=== PATIENT | female | born 1995 | race Caucasian/White ===

== ENCOUNTER 2016-11-09 21:41 | Emergency (ER) | payer BC ==
[~2016-11-09] VITALS: Ht 152.4 cm; Wt 53.9 kg
[2016-11-09 21:48] VITALS: BP 123/85; PULSE 79; TEMP 36.6; O2SAT 95; Ht 152.4 cm; Wt 53.9 kg
[2016-11-09] MEDS ORDERED: PROPARACAINE HCL 0.5% OP SOLN 15 ML BTL ONE (22:00)
[2016-11-09] MEDS ORDERED: OXYC1TAB3 PO (22:16)
[2016-11-09] MEDS ORDERED: ERYTHROMYCIN OP OINT 5 MG/GM 3.5 GM TUBE OP ONE (22:30)
[2016-11-09] MEDS ORDERED: ARTIFICIAL TEARS OP OINT 3.5 GM TUBE OP ONE (22:30)
[2016-11-09] MEDS ORDERED: OXYCODONE IR HOME PACK PO ONE (22:30)
--- NOTE | 2016-11-10 00:53 | EMERGENCY ROOM VISIT NOTE ---
History First contact with patient: 21:51 Chief Complaint: EYE PAIN Stated Complaint: SOMETHING STUCK IN LEFT EYE History of Present Illness The patient is a 21 year old female who presents to the Emergency Room with complaints of a sensation like something stuck in her left eye. The patient reports that she did not have any discomfort last night or this morning upon awakening. The patient does wear contact lenses, and does not recall taking them out last night. She reports that when she tried to insert her contact lens this morning, she noticed significant discomfort. She was able to insert the lens, but has had worsening discomfort throughout the day. She finally remove the contact lens this afternoon, and reports that the foreign body sensation persists. She also reports significant photophobia and blurred vision. She reports that the contact lenses are approximately 2 months old. She will wear them 14-16 hours daily. She denies any prior history of eye infections from contact lens use. She denies any other recent upper respiratory infections, and has had no purulent drainage from the eye. She rates her discomfort a 9 out of 10. Review of Systems 10 system review was performed and was negative except for pertinent positives and negatives as indicated in history of present illness Past Medical/Surgical History Medical Problems: (1) No significant past medical history Surgical Problems: (1) History of hand surgery (2) Surgical birthmark removal Family History FH: cancer FH: heart disease FH: hypertension Social History Smoking Status: Never Smoker Alcohol Use: occasionally Marital Status: single Housing Status: lives with roommate Occupation Status: [employer] student Current/Historical Medications Scheduled PRN Oxycodone Ir (Roxicodone Ir), 1 TAB PO Q4H PRN for Pain Physical Exam Vital Signs Date Time Temp Pulse Resp B/P (MAP) Pulse Ox O2 Delivery O2 Flow Rate FiO2 11/09/16 21:48 36.6 79 18 123/85 95 Room Air Right Eye Acuity: 100/20 Left Eye Acuity: 70/20 Pain Rating (0-10): 0 Physical Exam CONSTITUTIONAL: Healthy and well nourished. Alert and oriented X 3 with positive affect. Patient appears in mild to moderate discomfort from pain. HEENT: Normocephalic, atraumatic. Pupils equal, round and reactive. The patient has minimal left conjunctival injection. She has tearing from the eye without mucopurulent drainage. The patient is photophobic. No periorbital edema or erythema. Ears and nares are otherwise clear. NECK: Full active range of motion without discomfort. RESPIRATORY: Clear to auscultation bilaterally with no wheezing, crackles, rhonchi or stridor. CARDIOVASCULAR: Regular rate and rhythm with no murmurs, rubs or gallops. INTEGUMENTARY: No rash or other significant dermatologic conditions noted. NEUROLOGIC: No focal neurologic deficits noted. Medical Decision & Procedures Medications Administered Medications (Trade) Dose Ordered Sig/Jonathan Route Start Time Stop Time Status Last Admin Dose Admin Erythromycin (Erythromycin Oph Oint) 1 appln NOW ONCE OP 11/09/16 22:30 11/09/16 22:31 DC 11/09/16 22:39 1 APPLN Artificial Tears (Lacri-Lube Oph Oint) 1 appln NOW ONCE OP 11/09/16 22:30 11/09/16 22:31 DC 11/09/16 22:39 1 APPLN Oxycodone HCl (Roxicodone Immediate Rel 5MG Home Pack) 1 homepack UD ONCE PO 11/09/16 22:30 11/09/16 22:31 DC 11/09/16 22:39 1 HOMEPACK Procedure Slit lamp and fluorescein exam were performed. 2 drops of Alcaine were instilled into the left eye with complete resolution of pain. Centimeters exam did not show any mucopurulent drainage. There was no foreign debris noted in the lower conjunctival sac or under the upper eyelid with eversion. Negative hyphema, negative cell and flare. Fluorescein exam shows increased uptake of the cornea, consistent with contact overwear. No significant abrasions noted. ED Course Patient history and physical exam were performed. Nurse's notes were reviewed. Vital signs were reviewed and were normal. Visual acuity was also reviewed. The patient did not have her glasses with her and has poor vision without contact lenses. The patient had complete resolution with application of Alcaine eyedrops. Slit lamp and fluorescein exam did not show any evidence for corneal infection or abrasion. She does have significant fluorescein uptake, consistent with contact overwear use. The patient was instructed to refrain from contact lens use over the next 2 weeks. She was dispensed erythromycin ophthalmic ointment and Lacri-Lube, with instructions for use. She was encouraged in a mentally apply a cool compress to the eye. She was also provided a home pack and prescription for OxyIR as needed for pain. She was also encouraged to alternate ibuprofen and Tylenol for baseline pain relief. She was provided contact information for ophthalmology should her symptoms not improve within the next 48 hours. She was instructed to return to the emergency department for any significantly worsening symptoms. The patient was happy with plan of care, voice understanding of all discharge instructions, and denied any pain at the conclusion of my exam. Medical Decision [place] Drug Monitoring Program Search Results: patient reviewed within database, no issues identified Medication Reconcilliation Current Medication List: was personally reviewed by me Blood Pressure Screening Patient's blood pressure: Normal blood pressure Impression Primary Impression: Contact lens overwear of left eye Departure Information Dispostion Home / Self-Care Condition FAIR Prescriptions Oxycodone Ir (Roxicodone Ir) 5 Mg Tab 1 TAB PO Q4H Y for Pain, #10 TAB For Initial Treatment Prov: Jm Valente PA 11/09/16 Referrals Zeeshan Tejada M.D. Forms HOME CARE DOCUMENTATION FORM, IMPORTANT VISIT INFORMATION Patient Instructions My [facility] Additional Instructions Apply erythromycin ointment 1 cm strip every 6 hours (while awake) for 5 days. Use Lacri-Lube ointment the remainder of the time as needed for additional relief. Intermittently apply a cool compress to the eye for swelling and pain. Ibuprofen 800 mg and/or Tylenol 1000 mg every 8 hours. You may also alternate these medications for more effective pain relief: Ibuprofen --4 HRS--> Tylenol --4 HRS--> ibuprofen --4 HRS--> Tylenol .... OxyIR if needed for worse pain. Do not drink alcohol or drive while taking OxyIR. No contact lens use for 14 days. Start with all-new contact lenses, solution, rewetting drops and cosmetics. If symptoms are not improving within the next 36-48 hours, follow-up with ophthalmology (Dr. Tejada) for further reevaluation and management. If you are unable to get in to see him or one of his colleagues, return to the emergency department for reevaluation.
== END 2016-11-09 22:39 | disposition home or self-care (01) ==
LOC: EDBD 21:43 → C.EDB 21:43 → C.EDD 22:39
DX: T15.92XA Foreign body on external eye, part unspecified, left eye, initial encounter (principal); X58.XXXA Exposure to other specified factors, initial encounter; Z98.890 Other specified postprocedural states; Z80.9 Family history of malignant neoplasm, unspecified; Z82.49 Family history of ischemic heart disease and other diseases of the circulatory system